=== PATIENT | male | born 1975 | race Caucasian/White ===

== ENCOUNTER 2016-09-14 17:51 | Emergency (ER) | payer BC ==
--- NOTE | 2016-09-14 18:05 | EDM.PDOC ---
<CrystalAndrae Lyons - Last Filed: 09/14/16 18:02> ED HPI GENERAL MEDICAL PROBLEM - General Chief Complaint: Fever Stated Complaint: PT HAS FEVER Time Seen by Provider: 09/14/16 17:56 - History of Present Illness INITIAL COMMENTS - FREE TEXT/NARRATIVE: HISTORY AND PHYSICAL: History of present illness: Patient 40-year-old white male presents with concern of fever off and on 5 days he states he's had some associated body aches he denies cough shortness of breath nausea vomiting abdominal pain or other concern he states he did have a root canal and has had some challenges with displacement of the filling and intermittent food getting caught in that tooth he states his pain with that only relates to when food is in there and he removes it usually with a toothpick Review of systems: As per history of present illness and below otherwise all systems reviewed and negative. Past medical history: As per history of present illness and as reviewed below otherwise noncontributory. Surgical history: As per history of present illness and as reviewed below otherwise noncontributory. Social history: No reported history of drug or alcohol abuse. Family history: As per history of present illness and as reviewed below otherwise noncontributory. Physical exam: HEENT: Atraumatic, normocephalic, pupils reactive, negative for conjunctival pallor or scleral icterus, mucous membranes moist, throat clear, neck supple, nontender, trachea midline. Lungs: Clear to auscultation, breath sounds equal bilaterally, chest nontender. Heart: S1S2, regular, negative for clicks, rubs, or JVD. Abdomen: Soft, nondistended, nontender. Negative for masses or hepatosplenomegaly. Negative for costovertebral tenderness. Pelvis: Stable nontender. Genitourinary: Deferred. Rectal: Deferred. Extremities: Atraumatic, negative for cords or calf pain. Neurovascular unremarkable. Neuro: Awake, alert, oriented. Cranial nerves II through XII unremarkable. Cerebellum unremarkable. Motor and sensory unremarkable throughout. Exam nonfocal. Diagnostics: CBC CMP UA chest x-ray blood culture 2 Therapeutics: None Impression: #1 history of intermittent fever Definitive disposition and diagnosis as appropriate pending reevaluation and review of above. generalized Pain Score (Numeric/FACES): 5 - Related Data Allergies Allergy/AdvReac Type Severity Reaction Status Date / Time Penicillins Allergy Hives Verified 09/14/16 17:57 Home Meds: Home Meds . [No Known Home Meds] 09/16/15 [History] Past Medical History Musculoskeletal History: Reports: Fracture - Past Surgical History GI Surgical History: Reports: Appendectomy Social & Family History - Family History Family Medical History: Noncontributory - Tobacco Use Smoking Status *Q: Current Every Day Smoker Years of Tobacco use: 20 Packs/Tins Daily: 1 - Recreational Drug Use Recreational Drug Use: No ED ROS GENERAL - Review of Systems Review Of Systems: ROS reveals no pertinent complaints other than HPI. ED EXAM, GENERAL - Physical Exam Exam: See Below (See dictation) Course - Vital Signs Last Recorded V/S: Last Vital Signs Temp 37.1 C 09/14/16 17:58 Pulse 126 H 09/14/16 17:58 Resp 18 09/14/16 17:58 BP 135/87 09/14/16 17:58 Pulse Ox 98 09/14/16 17:58 - Orders/Labs/Meds Orders: Active Orders 24 hr Category Date Time Status Chest 2V [CR] Stat Exams 09/14/16 18:01 Taken CULTURE BLOOD [BC] Stat Lab 09/14/16 18:08 Received CULTURE BLOOD [BC] Stat Lab 09/14/16 18:15 Received UA W/MICROSCOPIC [URIN] Stat Lab 09/14/16 18:50 Received Sodium Chloride 0.9% [Normal Saline] 1,000 ml Med 09/14/16 18:09 Active IV STAT Blood Culture x2 Reflex Set [OM.PC] Stat Oth 09/14/16 18:01 Ordered Medication Orders Sodium Chloride (Normal Saline) 1,000 mls @ 999 mls/hr IV STAT ONE Stop: 09/14/16 19:09 Last Admin: 09/14/16 18:14 Dose: 999 mls/hr Labs: Laboratory Tests 09/14/16 09/14/16 Range/Units 18:08 18:08 WBC 8.83 (4.0-11.0) K/uL RBC 4.32 L (4.50-5.90) M/uL Hgb 13.4 (13.0-17.0) g/dL Hct 39.1 (38.0-50.0) % MCV 90.5 (80.0-98.0) fL MCH 31.0 (27.0-32.0) pg MCHC 34.3 (31.0-37.0) g/dL RDW Std Deviation 41.8 (28.0-62.0) fl RDW Coeff of Nuris 13 (11.0-15.0) % Plt Count 215 (150-400) K/uL MPV 9.00 (7.40-12.00) fL Neut % (Auto) 72.9 (48.0-80.0) % Lymph % (Auto) 18.5 (16.0-40.0) % [place] % (Auto) 8.3 (0.0-15.0) % Eos % (Auto) 0.1 (0.0-7.0) % Baso % (Auto) 0.2 (0.0-1.5) % Neut # (Auto) 6.4 H (1.4-5.7) K/uL Lymph # (Auto) 1.6 (0.6-2.4) K/uL [place] # (Auto) 0.7 (0.0-0.8) K/uL Eos # (Auto) 0.0 (0.0-0.7) K/uL Baso # (Auto) 0.0 (0.0-0.1) K/uL Nucleated RBC % 0.0 /100WBC Nucleated RBCs # 0 K/uL Sodium 135 L (136-146) mmol/L Potassium 3.4 L (3.5-5.1) mmol/L Chloride 103 (98-110) mmol/L Carbon Dioxide 23 (21-31) mmol/L BUN 10 (6.0-23.0) mg/dL Creatinine 1.1 (0.6-1.5) mg/dL Est Cr Clr Drug Dosing 97.00 mL/min Estimated GFR (MDRD) > 60.0 ml/min Glucose 145 H (60-110) mg/dL Calcium 8.8 (8.8-10.8) mg/dL Total Bilirubin 0.3 (0.1-1.5) mg/dL AST 47 H (5-40) IU/L ALT 32 (8-54) IU/L Alkaline Phosphatase 99 (40-150) Total Protein 6.8 (6.0-8.0) g/dL Albumin 3.5 (3.5-5.0) g/dL Globulin 3.3 (2.0-3.5) g/dL Albumin/Globulin Ratio 1.1 L (1.3-2.8) Meds: Medications Generic Name Dose Route Start Last Admin Trade Name Freq PRN Reason Stop Dose Admin Sodium Chloride 1,000 mls @ 999 mls/hr 09/14/16 18:09 09/14/16 18:14 Normal Saline IV 09/14/16 19:09 999 mls/hr STAT ONE Administration Discontinued Medications Generic Name Dose Route Start Last Admin Trade Name Freq PRN Reason Stop Dose Admin Ceftriaxone Sodium/Dextrose 1 50 mls @ 100 mls/hr 09/14/16 18:09 09/14/16 18: 15 gm/ Premix IV 09/14/16 18:38 100 mls/hr ONETIME ONE Administration Departure - Departure Disposition: Home, Self-Care 01 Clinical Impression: Pneumonia Qualifiers: Pneumonia type: due to unspecified organism Laterality: left Lung location: lower lobe of lung Qualified Code(s): J18.1 - Lobar pneumonia, unspecified organism - Discharge Information Forms: ED Department Discharge Additional Instructions: The following information is given to patients seen in the emergency department who are being discharged to home. This information is to outline your options for follow-up care. We provide all patients seen in our emergency department with a follow-up referral. The need for follow-up, as well as the timing and circumstances, are variable depending upon the specifics of your emergency department visit. If you don't have a primary care physician on staff, we will provide you with a referral. We always advise you to contact your personal physician following an emergency department visit to inform them of the circumstance of the visit and for follow-up with them and/or the need for any referrals to a consulting specialist. The emergency department will also refer you to a specialist when appropriate. This referral assures that you have the opportunity for followup care with a specialist. All of these measure are taken in an effort to provide you with optimal care, which includes your followup. Under all circumstances we always encourage you to contact your private physician who remains a resource for coordinating your care. When calling for followup care, please make the office aware that this follow-up is from your recent emergency room visit. If for any reason you are refused follow-up, please contact the [facility] emergency department at and ask to speak to the emergency department charge nurse. ADITHYA Chi [facility]- Internal Medicine and Family [address] [address] Push fluids rest and use [id number] Tylenol/ibuprofen for fevers and body aches. Please take antibiotics until they are finished. These call and follow- up with one of our clinic physicians or your provider in the next few days for reevaluation and check up and return to the ER as needed and as discussed <Arlet Reno - Last Filed: 09/14/16 19:05> ED HPI GENERAL MEDICAL PROBLEM - History of Present Illness INITIAL COMMENTS - FREE TEXT/NARRATIVE: Please note that the chest x-ray was reviewed and reveals a left lower lobe infiltrate for which the patient has already received Rocephin here in the ED and will be given a prescription for Levaquin for home. All testing results were discussed by Dr. Garber with the patient. Please add to impression of above: Left lower lobe pneumonia ED ROS GENERAL - Review of Systems Review Of Systems: ROS reveals no pertinent complaints other than HPI. Departure - Departure Time of Disposition: 19:02 Condition: Good
[2016-09-14] MEDS ORDERED: Sodium Chloride 0.9% 1,000 ML IV ONE (18:09)
[2016-09-14] MEDS ORDERED: cefTRIAXone 1 GM in Premix Bag 1 BAG IV ONE (18:09)
[2016-09-14 18:51] LABS: CHLORIDE,CL 103 mmol/L (98-110); SODIUM,NA 135 mmol/L (136-146)
[2016-09-14 19:07] VITALS: BP 132/81
--- NOTE | 2016-09-16 11:29 | CR ---
EXAM DATE: 09/14/16 PATIENT'S AGE: 40 Patient: JOE BOWERS Facility: [place], [place] Site . Site : 1975 Study: XRay Chest [id number]/15/2017 6:39:54 PM Ordering Physician: Crystal Abebe Final Report: INDICATIONS: Fever for 4-5 days. TECHNIQUE: Chest 2 view. COMPARISON: Chest radiograph September 06, 2012. FINDINGS: No pneumothorax or pleural effusion. Patchy ill-defined opacity in the periphery of the left lower lobe. Remainder of the lungs are clear. Cardiac and mediastinal contours are within normal limits. Upper abdomen and osseous structures show no acute abnormality. IMPRESSION: Left lower lobe opacity, worrisome for pneumonia. Radiographic followup to resolution recommended. Dictated by Charles Parmar MD @ 09/14/2016 6:43:35 PM Dictated by: Charles Parmar MD @ 09/14/2016 18:43:50 (Electronic Signature) Report Signed by Proxy. [facility] HOSPITALViktor
== END 2016-09-14 19:20 | disposition home or self-care (01) ==
LOC: MW.ED 17:51
DX: J18.9 Pneumonia, unspecified organism (principal); F17.210 Nicotine dependence, cigarettes, uncomplicated; Z90.49 Acquired absence of other specified parts of digestive tract; Z88.0 Allergy status to penicillin
CPT/HCPCS: 36415; 71020; 80053; 81001; 85025; 87040; 96365; 99283; J0696; J7040; 99284

== ENCOUNTER 2016-12-07 12:05 | Inpatient (IN) | payer BC ==
[2016-12-07] MEDS ORDERED: Sodium Chloride 0.9% 2.5 ML Syringe FLUSH PRN (12:13)
[2016-12-07] MEDS ORDERED: Sodium Chloride 0.9% 10 ML Syringe FLUSH PRN (12:13)
[2016-12-07] MEDS ORDERED: Ondansetron 4 MG/2 ML SDV IVPUSH ONE (12:20)
[2016-12-07] MEDS ORDERED: Sodium Chloride 0.9% 1,000 ML IV ONE ×3 (12:20→14:02)
[2016-12-07] MEDS ORDERED: Morphine 10 MG/ML Syringe IV ONE (12:20)
--- NOTE | 2016-12-07 12:20 | EDM.PDOC ---
<Denise Gu - Last Filed: 12/07/16 14:31> ED HPI GENERAL MEDICAL PROBLEM - General Chief Complaint: Fever Stated Complaint: ALL OVER PAIN,FEVER Time Seen by Provider: 12/07/16 12:13 Source of Information: Reports: Patient History Limitations: Reports: No Limitations - History of Present Illness INITIAL COMMENTS - FREE TEXT/NARRATIVE: HISTORY AND PHYSICAL: []31-year-old male presents after 2 days of being sick fever low back pain History of Present Illness: []Says this is similar to what he had last time but is coming in sooner He has had kidney stones in the past and always having low back pain denies having kidney stone at this time Review of Systems: As per history of present illness and below otherwise all systems reviewed and negative. Past medical history: As per history of present illness and as reviewed below otherwise noncontributory. Surgical history: As per history of present illness and as reviewed below otherwise noncontributory. Social history: No reported history of drug or alcohol abuse. Family history: As per history of present illness and as reviewed below otherwise noncontributory. Physical exam: Alert and oriented answering questions appropriately in full sentences without any shortness of breath. Grunting at times with pain to his low back HEENT: Atraumatic, normocehpalic, pupils reactive, negative for conjunctival pallor or scleral icterus, mucous membranes moist, throat clear, neck supple, nontender, trachea midline. Lungs: Clear to auscultation, breath sounds equal bilaterally, chest non tender. Heart: S1S2, regular, negative for clicks, rubs, or JVD. Abdomen: Soft, nondistended, nontender. Negative for masses or hepatossplenmegaly. Negative for costovertebral tenderness. Pelvis: Stable nontender. Genitourinary: Deferred. Rectal: Deferred Extremities: Atraumatic, negative for cords or calf pain. Neurovascular unremarkable. Neuro: Awake, alert, oriented. Cranial nerves II through XII unremarkable. Cerebellum unremarkable. Motor and sensory unremarkable throughout. Exam nonfocal. Urine drug screen is positive for amphetamines and methamphetamines patient states that he uses it as recreational product and did smoke this a few days ago. Patient's pain level appears to be disproportionate to urine tract infection combined this with his elevated white count of 19.9 consider unreliable story and with his drug use. As been determined that patient would require MRI which is unavailable at this facility today. Dr. Reno has discussed at length with this patient his need for admission and he has agreed to stay here. Have discussed this case with Dr. Reaves who is the hospitalist health and physical education professor and he is agreeable for admission to med surge floor. I have discussed this at length with the patient significant other in the hospital room. Patient is agreeable to admission here he is advised should his condition worsen he will be transferred. Diagnostics: []CBC CMP strep influenza chest x-ray Therapeutics: [Normal saline and Zofran morphine] Vancomycin, Rocephin, Impression: [Leukocytosis Urinary tract infection Possible early pyelonephritis] Plan: [Inpatient admission] Definitive disposition and diagnosis as appropriate pending reevaluation and review of above. generalized Pain Score (Numeric/FACES): 7 - Related Data Allergies Allergy/AdvReac Type Severity Reaction Status Date / Time Penicillins Allergy Hives Verified 12/07/16 12:10 Home Meds: Home Meds . [No Known Home Meds] 09/16/15 [History] Past Medical History - Past Health History Medical/Surgical History: Denies Medical/Surgical History Musculoskeletal History: Reports: Fracture - Past Surgical History GI Surgical History: Reports: Appendectomy Social & Family History - Family History Family Medical History: Noncontributory - Tobacco Use Smoking Status *Q: Current Every Day Smoker Years of Tobacco use: 20 Packs/Tins Daily: 1 - Recreational Drug Use Recreational Drug Use: No ED ROS ENT - Review of Systems Review Of Systems: ROS reveals no pertinent complaints other than HPI. ED EXAM, ENT - Physical Exam Exam: See Below (See dictation) Course - Vital Signs Last Recorded V/S: Last Vital Signs Temp 37.2 C 12/07/16 12:10 Pulse 97 12/07/16 13:25 Resp 20 12/07/16 13:25 BP 117/51 L 12/07/16 13:25 Pulse Ox 97 12/07/16 13:25 - Orders/Labs/Meds Orders: Active Orders 24 hr Category Date Time Status Patient Status [ADT] Stat ADT 12/07/16 14:37 Active EKG Documentation Completion [RC] STAT Care 12/07/16 13:51 Inactive Abdomen Pelvis w Cont [CT] Stat Exams 12/07/16 12:35 Taken Chest 2V [CR] Stat Exams 12/07/16 12:15 Taken CULTURE BLOOD [BC] Stat Lab 12/07/16 14:14 Received CULTURE BLOOD [BC] Stat Lab 12/07/16 14:27 Received CULTURE STREP A CONFIRMATION [RM] Stat Lab 12/07/16 12:29 Results CULTURE URINE [] Stat Lab 12/07/16 13:30 Received STREP SCRN A RAPID W CULT CONF [] Stat Lab 12/07/16 12:29 Results Sodium Chloride 0.9% [Normal Saline] 1,000 ml Med 12/07/16 14:02 Active IV STAT Sodium Chloride 0.9% [Saline Flush] Med 12/07/16 12:13 Active 10 ml FLUSH ASDIRECTED PRN Sodium Chloride 0.9% [Saline Flush] Med 12/07/16 12:13 Active 2.5 ml FLUSH ASDIRECTED PRN Vancomycin [Vancocin] 1 gm Med 12/07/16 14:31 Active Sodium Chloride 0.9% [Normal Saline] 250 ml IV ONETIME Blood Culture x2 Reflex Set [OM.PC] Stat Oth 12/07/16 14:02 Ordered Saline Lock Insert [OM.PC] Stat Oth 12/07/16 12:13 Ordered Medication Orders Sodium Chloride (Normal Saline) 1,000 mls @ 999 mls/hr IV STAT ONE Stop: 12/07/16 15:02 Last Admin: 12/07/16 14:41 Dose: 999 mls/hr Vancomycin HCl 1 gm/ Sodium (Chloride) 250 mls @ 250 mls/hr IV ONETIME ONE Stop: 12/07/16 15:30 Sodium Chloride (Saline Flush) 10 ml FLUSH ASDIRECTED PRN PRN Reason: Keep Vein Open Last Admin: 12/07/16 12:43 Dose: 10 ml Sodium Chloride (Saline Flush) 2.5 ml FLUSH ASDIRECTED PRN PRN Reason: Keep Vein Open Last Admin: 12/07/16 12:43 Dose: 2.5 ml Labs: Laboratory Tests 12/07/16 12/07/16 12/07/16 Range/Units 12:21 12:21 13:30 WBC 19.97 H (4.0-11.0) K/uL RBC 4.64 (4.50-5.90) M/uL Hgb 14.9 (13.0-17.0) g/dL Hct 43.3 (38.0-50.0) % MCV 93.3 (80.0-98.0) fL MCH 32.1 H (27.0-32.0) pg MCHC 34.4 (31.0-37.0) g/dL RDW Std Deviation 44.3 (28.0-62.0) fl RDW Coeff of Nuris 13 (11.0-15.0) % Plt Count 224 (150-400) K/uL MPV 8.60 (7.40-12.00) fL Neut % (Auto) 77.5 (48.0-80.0) % Lymph % (Auto) 15.6 L (16.0-40.0) % [place] % (Auto) 6.6 (0.0-15.0) % Eos % (Auto) 0.1 (0.0-7.0) % Baso % (Auto) 0.2 (0.0-1.5) % Neut # (Auto) 15.5 H (1.4-5.7) K/uL Lymph # (Auto) 3.1 H (0.6-2.4) K/uL [place] # (Auto) 1.3 H (0.0-0.8) K/uL Eos # (Auto) 0.0 (0.0-0.7) K/uL Baso # (Auto) 0.0 (0.0-0.1) K/uL Nucleated RBC % 0.0 /100WBC Nucleated RBCs # 0 K/uL Sodium 134 L (136-146) mmol/L Potassium 3.8 (3.5-5.1) mmol/L Chloride 103 (98-110) mmol/L Carbon Dioxide 21 (21-31) mmol/L BUN 12 (6.0-23.0) mg/dL Creatinine 1.1 (0.6-1.5) mg/dL Est Cr Clr Drug Dosing 96.02 mL/min Estimated GFR (MDRD) > 60.0 ml/min Glucose 119 H (60-110) mg/dL Calcium 8.6 L (8.8-10.8) mg/dL Total Bilirubin 1.1 (0.1-1.5) mg/dL AST 16 (5-40) IU/L ALT 23 (8-54) IU/L Alkaline Phosphatase 102 (40-150) Total Protein 7.0 (6.0-8.0) g/dL Albumin 3.8 (3.5-5.0) g/dL Globulin 3.2 (2.0-3.5) g/dL Albumin/Globulin Ratio 1.2 L (1.3-2.8) Urine Color Urine Appearance Urine pH (5.0-8.0) Ur Specific [place] (1.001-1.035) Urine Protein (NEGATIVE) mg/dL Urine Glucose (UA) (NEGATIVE) mg/dL Urine Ketones (NEGATIVE) mg/dL Urine Occult Blood (NEGATIVE) Urine Nitrite (NEGATIVE) Urine Bilirubin (NEGATIVE) Urine Urobilinogen (<2.0) EU/dL Ur Leukocyte Esterase (NEGATIVE) Urine RBC (0-2/HPF) Urine WBC (0-5/HPF) Ur Epithelial Cells (NONE-FEW) Urine Bacteria (NEGATIVE) Urine Opiates Screen NEGATIVE (NEGATIVE) Ur Oxycodone Screen NEGATIVE (NEGATIVE) Urine Methadone Screen NEGATIVE (NEGATIVE) Ur Barbiturates Screen NEGATIVE (NEGATIVE) Ur Phencyclidine Scrn NEGATIVE (NEGATIVE) Ur Amphetamine Screen POSITIVE (NEGATIVE) U Methamphetamines Scrn POSITIVE (NEGATIVE) U Benzodiazepines Scrn NEGATIVE (NEGATIVE) U Cocaine Metab Screen NEGATIVE (NEGATIVE) U Marijuana (THC) Screen NEGATIVE (NEGATIVE) 12/07/16 Range/Units 13:30 WBC (4.0-11.0) K/uL RBC (4.50-5.90) M/uL Hgb (13.0-17.0) g/dL Hct (38.0-50.0) % MCV (80.0-98.0) fL MCH (27.0-32.0) pg MCHC (31.0-37.0) g/dL RDW Std Deviation (28.0-62.0) fl RDW Coeff of [place]ur[place] (11.0-15.0) % Plt Count (150-400) K/uL MPV (7.40-12.00) fL Neut % (Auto) (48.0-80.0) % Lymph % (Auto) (16.0-40.0) % [place] % (Auto) (0.0-15.0) % Eos % (Auto) (0.0-7.0) % Baso % (Auto) (0.0-1.5) % Neut # (Auto) (1.4-5.7) K/uL Lymph # (Auto) (0.6-2.4) K/uL [place] # (Auto) (0.0-0.8) K/uL Eos # (Auto) (0.0-0.7) K/uL Baso # (Auto) (0.0-0.1) K/uL Nucleated RBC % /100WBC Nucleated RBCs # K/uL Sodium (136-146) mmol/L Potassium (3.5-5.1) mmol/L Chloride (98-110) mmol/L Carbon Dioxide (21-31) mmol/L BUN (6.0-23.0) mg/dL Creatinine (0.6-1.5) mg/dL Est Cr Clr Drug Dosing mL/min Estimated GFR (MDRD) ml/min Glucose (60-110) mg/dL Calcium (8.8-10.8) mg/dL Total Bilirubin (0.1-1.5) mg/dL AST (5-40) IU/L ALT (8-54) IU/L Alkaline Phosphatase (40-150) Total Protein (6.0-8.0) g/dL Albumin (3.5-5.0) g/dL Globulin (2.0-3.5) g/dL Albumin/Globulin Ratio (1.3-2.8) Urine Color YELLOW Urine Appearance CLEAR Urine pH 6.0 (5.0-8.0) Ur Specific [place] <= 1.005 (1.001-1.035) Urine Protein NEGATIVE (NEGATIVE) mg/dL Urine Glucose (UA) NEGATIVE (NEGATIVE) mg/dL Urine Ketones NEGATIVE (NEGATIVE) mg/dL Urine Occult Blood TRACE-LYSED (NEGATIVE) Urine Nitrite POSITIVE H (NEGATIVE) Urine Bilirubin NEGATIVE (NEGATIVE) Urine Urobilinogen 0.2 (<2.0) EU/dL Ur Leukocyte Esterase SMALL (NEGATIVE) Urine RBC 1-2 (0-2/HPF) Urine WBC 12-15 (0-5/HPF) Ur Epithelial Cells RARE (NONE-FEW) Urine Bacteria 1+ H (NEGATIVE) Urine Opiates Screen (NEGATIVE) Ur Oxycodone Screen (NEGATIVE) Urine Methadone Screen (NEGATIVE) Ur Barbiturates Screen (NEGATIVE) Ur Phencyclidine Scrn (NEGATIVE) Ur Amphetamine Screen (NEGATIVE) U Methamphetamines Scrn (NEGATIVE) U Benzodiazepines Scrn (NEGATIVE) U Cocaine Metab Screen (NEGATIVE) U Marijuana (THC) Screen (NEGATIVE) Meds: Medications Generic Name Dose Route Start Last Admin Trade Name Freq PRN Reason Stop Dose Admin Sodium Chloride 1,000 mls @ 999 mls/hr 12/07/16 14:02 12/07/16 14:41 Normal Saline IV 12/07/16 15:02 999 mls/hr STAT ONE Administration Vancomycin HCl 1 gm/ Sodium 250 mls @ 250 mls/hr 12/07/16 14:31 Chloride IV 12/07/16 15:30 ONETIME ONE Sodium Chloride 10 ml 12/07/16 12:13 12/07/16 12:43 Saline Flush FLUSH 10 ml ASDIRECTED PRN Administration Keep Vein Open Sodium Chloride 2.5 ml 12/07/16 12:13 12/07/16 12:43 Saline Flush FLUSH 2.5 ml ASDIRECTED PRN Administration Keep Vein Open Discontinued Medications Generic Name Dose Route Start Last Admin Trade Name Freq PRN Reason Stop Dose Admin Sodium Chloride 1,000 mls @ 999 mls/hr 12/07/16 12:20 12/07/16 12:40 Normal Saline IV 12/07/16 13:20 999 mls/hr STAT ONE Administration Sodium Chloride 1,000 mls @ 999 mls/hr 12/07/16 13:40 12/07/16 14:07 Normal Saline IV 12/07/16 14:40 999 mls/hr STAT ONE Administration Ciprofloxacin/Dextrose 400 mg/ 200 mls @ 200 mls/hr 12/07/16 14:15 Premix IV Q12H INEZ Ceftriaxone Sodium/Dextrose 1 50 mls @ 100 mls/hr 12/07/16 14:06 12/07/16 14: 41 gm/ Premix IV 12/07/16 14:35 100 mls/hr ONETIME ONE Administration Levofloxacin/Dextrose 500 mg/ 100 mls @ 100 mls/hr 12/07/16 14:32 Premix IV 12/07/16 15:31 ONETIME ONE Iopamidol 100 ml 12/07/16 13:13 12/07/16 13:13 Isovue Multipack-370 (76%) IVPUSH 12/07/16 13:14 100 ml ONETIME STA Administration Ketorolac Tromethamine 30 mg 12/07/16 13:27 12/07/16 13:38 Toradol IVPUSH 12/07/16 13:28 30 mg ONETIME ONE Administration Ketorolac Tromethamine Confirm 12/07/16 13:39 12/07/16 13:43 Toradol Administered 12/07/16 13:40 Not Given Dose 30 mg .ROUTE .STK-MED ONE Morphine Sulfate 2 mg 12/07/16 12:20 12/07/16 12:36 Morphine IV 12/07/16 12:21 2 mg ONETIME ONE Administration Ondansetron HCl 4 mg 12/07/16 12:20 12/07/16 12:36 Zofran IVPUSH 12/07/16 12:21 4 mg ONETIME ONE Administration Departure - Departure Time of Disposition: 14:39 Disposition: Admitted As Inpatient 65 Condition: Good Clinical Impression: Leukocytosis Qualifiers: Leukocytosis type: unspecified Qualified Code(s): D72.829 - Elevated white blood cell count, unspecified UTI (urinary tract infection) Qualifiers: Urinary tract infection type: acute cystitis Hematuria presence: with hematuria Qualified Code(s): N30.01 - Acute cystitis with hematuria - Discharge Information Referrals: PCP,Unknown [Primary Care Provider] - Forms: ED Department Discharge <Arlet Reno - Last Filed: 12/07/16 14:49> ED HPI GENERAL MEDICAL PROBLEM - History of Present Illness INITIAL COMMENTS - FREE TEXT/NARRATIVE: This is Dr. Reno dictating an addendum as a supervising physician on this case. I've been involved with this case from the beginning and actually know this patient from his last ER visit on September 14 when he was diagnosed with pneumonia. The patient's pain on my evaluation does seem somewhat out of proportion to the findings of just the UTI. White cell count is very worrisome and in light of his positive drug screen there is always great concern about a possible epidural abscess and we are unable to do MRI until Friday. I discussed with the patient being transferred to [facility] to get this MRI emergently and admission there for further care and he is refusing that at this time. The patient wanted to leave and go home AMA. I have discussed with him the alternative option of being admitted here for IV antibiotics and continued close follow-up and that if he worsens then transferred to [facility] which he is agreeable to. The patient and significant other at bedside are fully aware of our lack of resources here and the risks involved with being admitted here versus transfer and accepts those risks. The case was discussed with Dr. Reaves who was aware of these discussions and accepts the patient. I have told the patient on a second visit that with this admission if things change that the recommendation would be to transfer and he says that he would reconsider that at that time. Initially we wanted to place the patient on Zosyn and vancomycin but he has an allergy to penicillin so Dr. Reaves requested Rocephin and vancomycin. The patient currently in the ED looks somewhat uncomfortable but he is not toxic appearing and his vitals have remained stable. Critical care time excluding procedures:35min
[2016-12-07 12:46] LABS: CHLORIDE,CL 103 mmol/L (98-110); SODIUM,NA 134 mmol/L (136-146)
[2016-12-07] MEDS ORDERED: Iopamidol 755 MG/ML 500 ML Multipack Bottle IVPUSH STA (13:13)
[2016-12-07] MEDS ORDERED: Ketorolac 30 MG/ML SDV IVPUSH ONE (13:27)
[2016-12-07] MEDS ORDERED: Ketorolac 30 MG/ML SDV ONE (13:39)
[2016-12-07] MEDS ORDERED: cefTRIAXone 1 GM in Premix Bag 1 BAG IV ONE (14:06)
[2016-12-07] MEDS ORDERED: Ciprofloxacin in D5W 400 MG in Premix Bag 1 BAG IV SCH ×2 (14:15)
[2016-12-07] MEDS ORDERED: Levofloxacin/Dextrose 5%-Water 500 MG in Premix Bag 1 BAG IV ONE (14:32)
[2016-12-07] MEDS ORDERED: Acetaminophen 325 MG Tab PO PRN (15:44)
[2016-12-07] MEDS ORDERED: Ondansetron 4 MG Tab.DIS PO PRN (15:44)
[2016-12-07] MEDS ORDERED: Docusate Sodium 100 MG Cap PO PRN (15:44)
[2016-12-07] MEDS ORDERED: Temazepam 15 MG Cap PO PRN (15:44)
[2016-12-07] MEDS ORDERED: oxyCODONE 5 MG Tab PO PRN (15:44)
--- NOTE | 2016-12-07 15:52 | PCM.HP ---
H&P History of Present Illness - General Date of Service: 12/07/16 Admit Problem/Dx: Admission Diagnosis/Problem Admission Diagnosis/Problem Intractable pain Source of Information: Patient History Limitations: Reports: No Limitations - History of Present Illness Initial Comments - Free Text/Narative: The patient is a 41-year-old gentleman who is presented to the emergency department after 2 days of "being sick" and complaining of fever and low back pain. The patient reports that the pain came on softly and then suddenly got very intense. The patient says that other than the fever he has had no other complaints. He has had no specific aggravating or relieving factors. The patient was in the emergency department was noted to have marked leukocytosis of 19,000 without a significant left shift. The patient also had urinalysis which was positive for nitrites and small amount of leukocyte esterase along with +1 bacteria. The patient has a history of having kidney stones in the past. The patient was also positive for amphetamine/methamphetamine abuse. The patient says that this is only occasional recreation for him. The patient has no chronic medical problems and he does not take any medication chronically. He' s been working. Onset of Symptoms: Reports: Gradual Duration of Symptoms: Reports: Day(s):, Getting Worse Location: Reports: Back Quality: Reports: Ache, Throbbing Severity: Severe Improves with: Reports: Rest Worsens with: Reports: Movement Associated Symptoms: Reports: Fever/Chills, Headaches generalized Pain Score (Numeric/FACES): 9 - Related Data Allergies/Adverse Reactions: Allergies Allergy/AdvReac Type Severity Reaction Status Date / Time Penicillins Allergy Hives Verified 12/07/16 12:10 Home Medications: Home Meds . [No Known Home Meds] 09/16/15 [History] Past Medical History - Past Health History Medical/Surgical History: Denies Medical/Surgical History HEENT History: Reports: None Cardiovascular History: Reports: None Respiratory History: Reports: Other (See Below) Other Respiratory History: h/o pneumonia Gastrointestinal History: Reports: None Genitourinary History: Reports: None Musculoskeletal History: Reports: Fracture Neurological History: Reports: None Psychiatric History: Reports: None Endocrine/Metabolic History: Reports: None Hematologic History: Reports: None Immunologic History: Reports: None Oncologic (Cancer) History: Reports: None Dermatologic History: Reports: None - Infectious Disease History Infectious Disease History: Reports: Chicken Pox - Past Surgical History GI Surgical History: Reports: Appendectomy Social & Family History - Family History Family Medical History: Noncontributory - Tobacco Use Smoking Status *Q: Current Every Day Smoker Years of Tobacco use: 20 Packs/Tins Daily: 1 Used Tobacco, but Quit: No Second Hand Smoke Exposure: Yes - Caffeine Use Caffeine Use: Reports: Coffee - Recreational Drug Use Recreational Drug Use: Yes Drug Use in Last 12 Months: Yes Recreational Drug Type: Reports: Amphetamines (Speed), Methamphetamine Recreational Drug Use Frequency: Socially H&P Review of Systems - Review of Systems: Review Of Systems: See Below General: Reports: Fever, Chills HEENT: Reports: No Symptoms Pulmonary: Reports: No Symptoms Cardiovascular: Reports: No Symptoms Gastrointestinal: Reports: No Symptoms Genitourinary: Reports: No Symptoms Musculoskeletal: Reports: Back Pain, Muscle Pain Skin: Reports: No Symptoms Psychiatric: Reports: No Symptoms Neurological: Reports: No Symptoms Hematologic/Lymphatic: Reports: No Symptoms Immunologic: Reports: No Symptoms Exam - Exam Exam: See Below - Vital Signs Vital Signs: Last Vital Signs Temp 36.9 C 12/07/16 15:18 Pulse 88 12/07/16 15:18 Resp 20 12/07/16 15:18 BP 130/74 12/07/16 15:18 Pulse Ox 99 12/07/16 15:18 Weight: 81.647 kg - Exam Quality Assessment: No: Supplemental Oxygen General: Alert, Oriented, Cooperative, Moderate Distress HEENT: Conjunctiva Clear, Mucosa Moist & [place] (Dry), Nares Patent Neck: Supple, Trachea Midline Lungs: Clear to Auscultation, Normal Respiratory Effort, Rhonchi Cardiovascular: Regular Rate GI/Abdominal Exam: Normal Bowel Sounds, Soft Back Exam: CVA Tenderness (L), CVA Tenderness (R) Extremities: No Pedal Edema Skin: Warm, Dry Neurological: Cranial Nerves Intact Neuro Extensive - Mental Status: Alert, Oriented x3, Normal Mood/Affect Psychiatric: Alert, Normal Affect - Patient Data Result Diagrams: 12/07/16 12:21 12/07/16 12:21 *Q Meaningful Use (ADM) - VTE *Q VTE Criteria *Q: - VTE Risk Assess *Q Each Risk Factor Represents 1 Point: Age 41 - 59 years Total Score 1 Point Risk Factors: 1 - Stroke *Q Stroke Criteria *Q: - AMI *Q AMI Criteria *Q: - Problem List (1) Pyelonephritis, acute SNOMED Code(s): 57239331 ICD Code: N10 - ACUTE PYELONEPHRITIS Status: Acute Priority: High Current Visit: Yes (2) Methamphetamine abuse SNOMED Code(s): 805629662 ICD Code: F15.10 - OTHER STIMULANT ABUSE, UNCOMPLICATED Status: Acute Priority: High Current Visit: Yes (3) Back pain SNOMED Code(s): 496251003 ICD Code: M54.9 - DORSALGIA, UNSPECIFIED Status: Acute Priority: High Current Visit: Yes Qualifiers: Back pain location: thoracic back pain Back pain laterality: bilateral (4) Leukocytosis SNOMED Code(s): 586432031 ICD Code: D72.829 - ELEVATED WHITE BLOOD CELL COUNT, UNSPECIFIED Status: Acute Current Visit: Yes Qualifiers: Leukocytosis type: unspecified Qualified Code(s): D72.829 - Elevated white blood cell count, unspecified Problem List Initiated/Reviewed/Updated: Yes Orders Last 24hrs: Active Orders 24 hr Category Date Time Status Patient Status [ADT] Routine ADT 12/07/16 15:44 Active Oxygen Therapy [RC] PRN Care 12/07/16 15:44 Active Up ad Mayra [RC] ASDIRECTED Care 12/07/16 15:44 Active VTE/DVT Education [RC] PER UNIT ROUTINE Care 12/07/16 15:44 Active Vital Signs [RC] Q4H Care 12/07/16 15:44 Active Regular Diet [DIET] Diet 12/07/16 Dinner Active Acetaminophen [Tylenol] Med 12/07/16 15:44 Ordered 650 mg PO Q4H PRN Docusate Sodium [Colace] Med 12/07/16 15:44 Ordered 100 mg PO BID PRN Enoxaparin [Lovenox] Med 12/08/16 09:00 Ordered 30 mg SUBCUT DAILY Morphine Med 12/07/16 15:44 Ordered 2 mg IVPUSH Q2H PRN Nicotine [Habitrol] Med 12/08/16 09:00 Ordered 14 mg TRDERM DAILY Ondansetron [Zofran ODT] Med 12/07/16 15:44 Ordered 4 mg PO Q6H PRN Sodium Chloride 0.9% [Normal Saline] 1,000 ml Med 12/07/16 15:45 Ordered IV ASDIRECTED Temazepam [Restoril] Med 12/07/16 15:44 Ordered 15 mg PO BEDTIME PRN oxyCODONE Med 12/07/16 15:44 Ordered 5 mg PO Q4H PRN Resuscitation Status Routine Resus Stat 12/07/16 15:44 Ordered Medication Orders Acetaminophen (Tylenol) 650 mg PO Q4H PRN PRN Reason: Pain (Mild 1-3)/fever Docusate Sodium (Colace) 100 mg PO BID PRN PRN Reason: Constipation Enoxaparin Sodium (Lovenox) 30 mg SUBCUT DAILY [facility] Sodium Chloride (Normal Saline) 1,000 mls @ 75 mls/hr IV ASDIRECTED [facility] Morphine Sulfate (Morphine) 2 mg IVPUSH Q2H PRN PRN Reason: Pain (severe 7-10) Stop: 12/08/16 15:47 Nicotine (Habitrol) 14 mg TRDERM DAILY [facility] Ondansetron HCl (Zofran Odt) 4 mg PO Q6H PRN PRN Reason: nausea, able to take PO Oxycodone HCl (Oxycodone) 5 mg PO Q4H PRN PRN Reason: Pain (moderate 4-6) Sodium Chloride (Saline Flush) 10 ml FLUSH ASDIRECTED PRN PRN Reason: Keep Vein Open Last Admin: 12/07/16 12:43 Dose: 10 ml Sodium Chloride (Saline Flush) 2.5 ml FLUSH ASDIRECTED PRN PRN Reason: Keep Vein Open Last Admin: 12/07/16 12:43 Dose: 2.5 ml Temazepam (Restoril) 15 mg PO BEDTIME PRN PRN Reason: Sleep Assessment/Plan Comment:: The patient is a 41-year-old gentleman who be admitted observation. This appears likely a pyelonephritis although epidural abscess, discitis and other thoracic issues are on the differential. The patient has refused transport to tertiary care center or MRI services would be available. The patient does have pyuria and CVA tenderness as well. The patient has leukocytosis without a significant left shift which may be to the infection and/or the methamphetamine abuse. I ordered that the patient be placed on CIWA protocol and order to help to avoid withdrawal symptoms. The patient will be kept on IV fluids 75 mL per hour. I've also ordered morphine to help with the patient's intractable pain. For now he is on vancomycin and Rocephin although likely the vancomycin can be discontinued as I think that discitis or epidural abscess is less likely. I have admitted the patient observation and ordered laboratory testing in the morning. The patient likely will be appropriate for discharge in 1-2 days depending upon pain level, culture results and physical improvement.
[2016-12-07] MEDS: Morphine 2 MG/ML Syringe IVPUSH PRN ×2 (16:19→20:10)
[2016-12-07] MEDS ORDERED: LORazepam 2 MG/ML MDV IVPUSH PRN (20:01)
[2016-12-07] MEDS: Sodium Chloride 0.9% 1,000 ML IV SCH (20:11)
[2016-12-07] MEDS ORDERED: EXCEDRIN PO PRN (23:00)
[2016-12-07] MEDS ORDERED: EXCEDRIN MIGRAINE PO PRN (23:15)
[2016-12-08] MEDS: Sodium Chloride 0.9% 1,000 ML IV SCH (05:31)
[2016-12-08 06:32] LABS: CHLORIDE,CL 110 mmol/L (98-110); SODIUM,NA 139 mmol/L (136-146)
[2016-12-08 08:10] VITALS: BP 123/70
[2016-12-08] MEDS ORDERED: Enoxaparin 30 MG/0.3 ML Syringe SUBCUT SCH (09:00)
[2016-12-08] MEDS ORDERED: Nicotine 14 MG/24 Hr Patch TRDERM SCH (09:00)
--- NOTE | 2016-12-08 10:03 | PCM.DCSUM1 ---
Discharge Summary - Hospital Course Free Text/Narrative:: I was informed by nurses that patient wanted to leave hospital. I visited with him and informed him that due to his acute Pyelonephritis, leukocytosis and history of recurrent renal stones, my advice is that he remain in hospital until culture sensitivities return or leukocytosis resolves. He insisted to be discharged. I informed him that if he leaves it would be AMA. Patient decided that he would be leaving AMA. He was provided prescription for Ciprofloxacin 500 mg PO BID for 7 days. - Discharge Data Discharge Date: 12/08/16 Discharge Disposition: Against Medical Advice 07 Condition: Stable - Patient Instructions Diet: Regular Diet as Tolerated, No Alcoholic Beverages Activity: As Tolerated Driving: Do Not Drive Showering/Bathing: May Shower Notify Provider of: Fever, Increased Pain, Swelling and Redness, Drainage, Nausea and/or Vomiting - Discharge Plan Prescriptions/Med Rec: Ciprofloxacin HCl [Cipro] 500 mg PO BID 7 Days #14 tablet Home Medications: Home Meds Ciprofloxacin HCl [Cipro] 500 mg PO BID 7 Days #14 tablet 12/08/16 [Rx] Forms: ED Department Discharge Referrals: PCP,Unknown [Primary Care Provider] - - Discharge Summary/Plan Comment DC Time >30 min.: No - Patient Data Vitals - Most Recent: Last Vital Signs Temp 36.9 C 12/08/16 08:00 Pulse 77 12/08/16 08:00 Resp 22 H 12/08/16 08:00 BP 123/70 12/08/16 08:00 Pulse Ox 96 12/08/16 08:00 Weight - Most Recent: 81.647 kg I&O - Last 24 hours: Intake & Output 12/07/16 12/08/16 12/08/16 22:59 06:59 14:59 Intake Total 200 1350 Output Total 350 1450 Balance -150 -100 Lab Results - Last 24 hrs: Laboratory Results - last 24 hr 12/08/16 12/08/16 Range/Units 05:45 05:45 WBC 14.20 H (4.0-11.0) K/uL RBC 4.40 L (4.50-5.90) M/uL Hgb 14.0 (13.0-17.0) g/dL Hct 41.4 (38.0-50.0) % MCV 94.1 (80.0-98.0) fL MCH 31.8 (27.0-32.0) pg MCHC 33.8 (31.0-37.0) g/dL RDW Std Deviation 45.4 (28.0-62.0) fl RDW Coeff of Nuris 13 (11.0-15.0) % Plt Count 195 (150-400) K/uL MPV 8.90 (7.40-12.00) fL Neut % (Auto) 71.3 (48.0-80.0) % Lymph % (Auto) 21.5 (16.0-40.0) % [place] % (Auto) 6.3 (0.0-15.0) % Eos % (Auto) 0.7 (0.0-7.0) % Baso % (Auto) 0.2 (0.0-1.5) % Neut # (Auto) 10.1 H (1.4-5.7) K/uL Lymph # (Auto) 3.1 H (0.6-2.4) K/uL [place] # (Auto) 0.9 H (0.0-0.8) K/uL Eos # (Auto) 0.1 (0.0-0.7) K/uL Baso # (Auto) 0.0 (0.0-0.1) K/uL Nucleated RBC % 0.0 /100WBC Nucleated RBCs # 0 K/uL Sodium 139 (136-146) mmol/L Potassium 4.1 (3.5-5.1) mmol/L Chloride 110 (98-110) mmol/L Carbon Dioxide 22 (21-31) mmol/L BUN 12 (6.0-23.0) mg/dL Creatinine 0.9 (0.6-1.5) mg/dL Est Cr Clr Drug Dosing 117.36 mL/min Estimated GFR (MDRD) > 60.0 ml/min Glucose 99 (60-110) mg/dL Calcium 8.2 L (8.8-10.8) mg/dL Phosphorus 2.4 (2.4-4.7) mg/dL Magnesium 1.5 (1.5-2.3) mEq/L Total Bilirubin 0.4 (0.1-1.5) mg/dL AST 15 (5-40) IU/L ALT 18 (8-54) IU/L Alkaline Phosphatase 92 (40-150) Total Protein 5.8 L (6.0-8.0) g/dL Albumin 3.1 L (3.5-5.0) g/dL Globulin 2.7 (2.0-3.5) g/dL Albumin/Globulin Ratio 1.2 L (1.3-2.8) Med Orders - Current: Current Medications Acetaminophen (Tylenol) 650 mg PO Q4H PRN PRN Reason: Pain (Mild 1-3)/fever Last Admin: 12/07/16 20:44 Dose: 650 mg Docusate Sodium (Colace) 100 mg PO BID PRN PRN Reason: Constipation Enoxaparin Sodium (Lovenox) 30 mg SUBCUT DAILY [facility] Last Admin: 12/08/16 08:18 Dose: Not Given Sodium Chloride (Normal Saline) 1,000 mls @ 75 mls/hr IV ASDIRECTED [facility] Last Admin: 12/08/16 05:31 Dose: 75 mls/hr Ceftriaxone Sodium/Dextrose 1 (gm/ Premix) 50 mls @ 100 mls/hr IV Q24H [facility] Lorazepam (Ativan) 0 mg IVPUSH ASDIRECTED PRN; Protocol PRN Reason: Agitation Morphine Sulfate (Morphine) 2 mg IVPUSH Q2H PRN PRN Reason: Pain (severe 7-10) Stop: 12/08/16 15:47 Last Admin: 12/07/16 20:10 Dose: 2 mg Nicotine (Habitrol) 14 mg TRDERM DAILY [facility] Last Admin: 12/08/16 08:16 Dose: Not Given Ondansetron HCl (Zofran Odt) 4 mg PO Q6H PRN PRN Reason: nausea, able to take PO Oxycodone HCl (Oxycodone) 5 mg PO Q4H PRN PRN Reason: Pain (moderate 4-6) Last Admin: 12/07/16 22:03 Dose: 5 mg Patient's Own Medication 1 Each Excedrin Migraine 2 each PO Q6H PRN PRN Reason: Headache Last Admin: 12/07/16 23:38 Dose: 2 each Sodium Chloride (Saline Flush) 10 ml FLUSH ASDIRECTED PRN PRN Reason: Keep Vein Open Last Admin: 12/07/16 12:43 Dose: 10 ml Sodium Chloride (Saline Flush) 2.5 ml FLUSH ASDIRECTED PRN PRN Reason: Keep Vein Open Last Admin: 12/07/16 12:43 Dose: 2.5 ml Temazepam (Restoril) 15 mg PO BEDTIME PRN PRN Reason: Sleep Discontinued Medications Sodium Chloride (Normal Saline) 1,000 mls @ 999 mls/hr IV STAT ONE Stop: 12/07/16 13:20 Last Admin: 12/07/16 12:40 Dose: 999 mls/hr Sodium Chloride (Normal Saline) 1,000 mls @ 999 mls/hr IV STAT ONE Stop: 12/07/16 14:40 Last Admin: 12/07/16 14:07 Dose: 999 mls/hr Sodium Chloride (Normal Saline) 1,000 mls @ 999 mls/hr IV STAT ONE Stop: 12/07/16 15:02 Last Admin: 12/07/16 14:41 Dose: 999 mls/hr Ciprofloxacin/Dextrose 400 mg/ (Premix) 200 mls @ 200 mls/hr IV Q12H [facility] Last Admin: 12/07/16 15:48 Dose: Not Given Ceftriaxone Sodium/Dextrose 1 (gm/ Premix) 50 mls @ 100 mls/hr IV ONETIME ONE Stop: 12/07/16 14:35 Last Admin: 12/07/16 14:41 Dose: 100 mls/hr Vancomycin HCl 1 gm/ Sodium (Chloride) 250 mls @ 250 mls/hr IV ONETIME ONE Stop: 12/07/16 15:30 Last Admin: 12/07/16 15:07 Dose: 250 mls/hr Levofloxacin/Dextrose 500 mg/ (Premix) 100 mls @ 100 mls/hr IV ONETIME ONE Stop: 12/07/16 15:31 Last Admin: 12/07/16 15:48 Dose: Not Given Ceftriaxone Sodium/Dextrose 1 (gm/ Premix) 50 mls @ 100 mls/hr IV Q24H [facility] Iopamidol (Isovue Multipack-370 (76%)) 100 ml IVPUSH ONETIME STA Stop: 12/07/16 13:14 Last Admin: 12/07/16 13:13 Dose: 100 ml Ketorolac Tromethamine (Toradol) 30 mg IVPUSH ONETIME ONE Stop: 12/07/16 13:28 Last Admin: 12/07/16 13:38 Dose: 30 mg Ketorolac Tromethamine (Toradol) Confirm Administered Dose 30 mg .ROUTE .STK- MED ONE Stop: 12/07/16 13:40 Last Admin: 12/07/16 13:43 Dose: Not Given Morphine Sulfate (Morphine) 2 mg IV ONETIME ONE Stop: 12/07/16 12:21 Last Admin: 12/07/16 12:36 Dose: 2 mg Ondansetron HCl (Zofran) 4 mg IVPUSH ONETIME ONE Stop: 12/07/16 12:21 Last Admin: 12/07/16 12:36 Dose: 4 mg Patient's Own Medication 1 Each Excedrin 1 each PO Q6H PRN PRN Reason: Headache *Q Meaningful Use (DIS) - VTE *Q VTE Criteria *Q: - Stroke *Q Stroke Criteria *Q: - AMI *Q AMI Criteria *Q:
[2016-12-08] MEDS ORDERED: cefTRIAXone 1 GM in Premix Bag 1 BAG IV SCH ×2 (13:30→14:00)
--- NOTE | 2016-12-09 10:17 | CT ---
EXAM DATE: 12/07/16 PATIENT'S AGE: 41 Patient: JOE BOWERS Facility: [place], [place] Site . Site : 1975 Study: CT Abdomen/Pelvis W CONT [id number] 1:19:40 PM Ordering Physician: Doctor Bolivar Final Report: INDICATION: Body pain. Fever. History of kidney stones. Technique: Volumetric CT acquisition of the abdomen and pelvis following the administration of 100 mL Isovue-370 intravenous contrast. Multiplanar reconstruction. Findings: The lung bases are clear. The liver and spleen are normal in size. 1.1 cm cyst in the dome of the liver. No other focal abnormalities are identified. There is no dilatation of the biliary system. The gallbladder is present. The pancreas and adrenal glands are normal. Kidneys normal in size, shape, and position. No hydronephrosis. No renal masses or focal parenchymal abnormalities. Ureters normal in course and caliber. No urinary tract stones are identified. Abdominal aorta normal in caliber. No para-aortic or retrocrural lymphadenopathy. Normal bowel gas pattern. No inflammatory changes involving the bowel. Nondilated fluid -filled loops of small bowel in the lower abdomen and pelvis are nonspecific finding which can be present in the face of an enteritis. Sigmoid diverticulosis without diverticulitis. The urinary bladder has a smooth contour. The fat planes surrounding the bladder, prostate, and rectum are maintained. No free fluid in the abdomen and pelvis. No acute bony abnormality in the lumbar spine or pelvic ring . Impression : 1. Fluid-filled loops of nondilated small bowel are a nonspecific finding which can be present in the face of an enteritis. 2. Small simple cyst in the liver. 3. Sigmoid diverticulosis without diverticulitis. Please note that all CT scans at this facility use dose modulation, iterative reconstruction, and/or weight-based dosing when appropriate to reduce radiation dose to as low as reasonably achievable. Dictated by Therese Chaves MD @ Dec 07 2016 1:32PM (Electronic Signature) Report Signed by Proxy. [facility] INSANEViktor
--- NOTE | 2016-12-09 10:18 | CR ---
EXAM DATE: 12/07/16 PATIENT'S AGE: 41 Patient: JOE BOWERS Facility: [place], [place] Site . Site : 1975 Study: XRay Chest [id number] 1:25:18 PM Ordering Physician: Doctor Bolivar Final Report: INDICATION: Overall body aches. Technique: Two-view chest. Findings: Heart and mediastinum are normal in size and configuration. Pulmonary vessels are normal. Lungs are clear. No pleural fluid. No acute bony abnormality. Impression: Normal chest. Dictated by Therese Chaves MD @ Dec 07 2016 1:30PM (Electronic Signature) Report Signed by Proxy. VALDEMAR
== END 2016-12-08 10:10 | disposition left against medical advice (07) | DRG 463 ==
LOC: MW.ED 12:05 → MW.MS 15:17
PROVIDERS: ADMIT Internal Medicine; ATTEND Internal Medicine
DX: N10 Acute pyelonephritis (principal); D72.829 Elevated white blood cell count, unspecified; F15.10 Other stimulant abuse, uncomplicated; M54.9 Dorsalgia, unspecified; F17.200 Nicotine dependence, unspecified, uncomplicated; Z88.0 Allergy status to penicillin; Z87.442 Personal history of urinary calculi; Z53.21 Procedure and treatment not carried out due to patient leaving prior to being seen by health care provider
CPT/HCPCS: 36415; 71020; 71020-26; 74177; 74177-26; 80053; 80305; 81001; 83735; 84100; 85025; 87040; 87081; 87086; 87088; 87186; 87804; 87880; 96361; 96365; 96375; 99283; 99285-25; A9270-GY; J0696; J1885; J2270; J2405; J3370; J7040; J7050; Q9967

== ENCOUNTER 2021-07-25 13:35 | Emergency (ER) | payer SELFPAY ==
[2021-07-25] MEDS ORDERED: cefTRIAXone 1 GM Vial IM ONE (14:37)
[2021-07-25] MEDS ORDERED: Lidocaine 1% PF 2 ML SDV INJECT ONE (14:48)
[2021-07-25 14:53] LABS: ACETAMINOPHEN <2.0 ug/mL; BLOOD UREA NITROGEN,BUN 19 mg/dL (7.0-18.0); CARBON DIOXIDE,CO2 24.4 mmol/L (21.0-32.0); CHLORIDE,CL 104 mmol/L (98-107); GLUCOSE RANDOM 139 mg/dL (74-106); POTASSIUM,K 3.9 mmol/L (3.5-5.1); SODIUM,NA 137 mmol/L (136-148)
[2021-07-25] MEDS ORDERED: Acetaminophen 325 MG Tab PO ONE (15:06)
[2021-07-25] MEDS ORDERED: Ondansetron 4 MG Tab.DIS PO ONE (15:06)
[2021-07-25 16:50] VITALS: BP 132/73; PULSE 86
== END 2021-07-25 16:47 | disposition home or self-care (01) ==
LOC: MW.ED 13:35
DX: N30.01 Acute cystitis with hematuria (principal); F19.10 Other psychoactive substance abuse, uncomplicated; Z88.0 Allergy status to penicillin; Z20.822 Contact with and (suspected) exposure to COVID-19
CPT/HCPCS: 36415; 80053; 80143; 80179; 80305-QW; 80307; 81001; 83735; 84443; 85025; 87086; 96372; 99283; A9270-GY; J0696; U0002

== ENCOUNTER 2024-04-30 23:55 | Inpatient (IN) | payer MEDICAID ==
[2024-05-01] MEDS ORDERED: Sodium Chloride 0.9% 20 ML SDV IV PRN (00:31)
[2024-05-01] MEDS ORDERED: Sodium Chloride 0.9% 2.5 ML Syringe FLUSH PRN (00:31)
[2024-05-01] MEDS ORDERED: Sodium Chloride 0.9% 10 ML Syringe FLUSH PRN (00:31)
[2024-05-01] MEDS ORDERED: Naloxone 0.4 MG/ML SDV IVPUSH PRN (00:59)
[2024-05-01 01:06] LABS: BASOPHILS ABSOLUTE AUTO 0.02 K/uL (0.00-0.20); BASOPHILS PERCENT AUTO 0.1 % (0.0-1.0); EOSINOPHILS ABSOLUTE AUTO 0.07 K/uL (0.00-0.45); EOSINOPHILS PERCENT AUTO 0.4 % (0.0-6.0); HEMATOCRIT 30.2 % (42.0-52.0); HEMOGLOBIN 9.8 g/dL (14.0-18.0); IMMATURE GRAN ABSOLUTE AUTO 0.05 K/uL (0.00-0.05); IMMATURE GRAN PERCENT AUTO 0.3 % (0.0-0.4); LYMPHOCYTES PERCENT AUTO 3.9 % (24.0-44.0); MEAN CORPUSCULAR HEMOGLOBIN 27.8 pg (28.0-32.0); MEAN CORPUSCULAR HGB CONC 32.5 g/dL (32.0-36.0); MEAN CORPUSCULAR VOLUME 85.6 fL (83.0-99.0); MEAN PLATELET VOLUME 8.6 fL (9.4-12.4); MONOCYTES ABSOLUTE AUTO 0.07 K/uL (0.00-0.80); MONOCYTES PERCENT AUTO 0.4 % (0.0-8.0); NEUTROPHILS ABSOLUTE AUTO 16.87 K/uL (1.80-7.70); NEUTROPHILS PERCENT AUTO 94.9 % (41.0-71.0); PLATELET COUNT,PLT 581 K/uL (150-400); RED BLOOD CELL COUNT 3.53 M/uL (4.52-5.90); WHITE BLOOD CELL COUNT,WBC 17.78 K/uL (3.9-11.3)
[2024-05-01 01:14] LABS: PH,VENOUS 7.48 (7.31-7.41)
[2024-05-01] MEDS: Cefepime 1 GM in Sodium Chloride 0.9% 50 ML IV ONE (01:14)
[2024-05-01] MEDS: HYDROmorphone 1 MG/ML Syringe IVPUSH ONE ×2 (01:14→02:27)
[2024-05-01] MEDS: Sodium Chloride 0.9% 2,000 ML IV ONE (01:16)
[2024-05-01 01:21] LABS: INR 1.08 (0.86-1.11)
[2024-05-01 01:51] LABS: A/G RATIO 0.5 (0.9-1.6); ALBUMIN 2.4 g/dL (3.4-5.0); BILIRUBIN TOTAL 0.6 mg/dL (0.2-1.0); C-REACTIVE PROTEIN 24.05 mg/dL (<0.3); CALCIUM 9.5 mg/dL (8.5-10.1); CARBON DIOXIDE,CO2 26.5 mmol/L (21.0-32.0); CREATININE 0.9 mg/dL (0.8-1.3); EST CRCL DRUG DOSING (CG) 108.98 mL/min; MAGNESIUM 1.7 mg/dL (1.8-2.4); POTASSIUM,K 4.5 mmol/L (3.5-5.1); PROTEIN TOTAL,TP 7.5 g/dL (6.4-8.2)
[2024-05-01 02:21] LABS: APPEARANCE,URINE CLEAR; BILIRUBIN,URINE NEGATIVE (NEGATIVE); COLOR,URINE YELLOW; GLUCOSE,URINE NEGATIVE (NEGATIVE); KETONES,URINE NEGATIVE (NEGATIVE); LEUKOCYTE ESTERASE,URINE NEGATIVE (NEGATIVE); NITRITE,URINE NEGATIVE (NEGATIVE); OCCULT BLOOD,URINE NEGATIVE (NEGATIVE); PROTEIN,URINE NEGATIVE (NEGATIVE); UROBILINOGEN,URINE 0.2 EU/dL (<2.0)
[2024-05-01 02:31] LABS: AMPHETAMINES SCREEN, URINE NEGATIVE (CUTOFF=500); BARBITURATE SCREEN,URINE NEGATIVE (CUTOFF=200); BENZODIAZEPINES SCREEN,URINE NEGATIVE (CUTOFF=150); BUPRENORPHINE SCREEN,URINE NEGATIVE (CUTOFF=10); METHADONE SCREEN, URINE NEGATIVE (CUTOFF=200); METHAMPHETAMINES SCREEN, URINE NEGATIVE (CUTOFF=500); OXYCODONE SCREEN,URINE PRESUMPTIVE POSITIVE (CUT0FF=100); PCP SCREEN,URINE NEGATIVE (CUTOFF=25); THC SCREEN,URINE 20 NG/ML NEGATIVE (CUTOFF=50)
[2024-05-01] MEDS: HYDROmorphone 1 MG/ML Syringe IVPUSH PRN (04:08)
[2024-05-01] MEDS: Baclofen 10 MG Tab PO SCH (06:05)
[2024-05-01 06:49] LABS: BASOPHILS ABSOLUTE AUTO 0.01 K/uL (0.00-0.20); BASOPHILS PERCENT AUTO 0.1 % (0.0-1.0); EOSINOPHILS ABSOLUTE AUTO 0.01 K/uL (0.00-0.45); EOSINOPHILS PERCENT AUTO 0.1 % (0.0-6.0); HEMATOCRIT 28.9 % (42.0-52.0); HEMOGLOBIN 9.3 g/dL (14.0-18.0); IMMATURE GRAN ABSOLUTE AUTO 0.06 K/uL (0.00-0.05); IMMATURE GRAN PERCENT AUTO 0.4 % (0.0-0.4); LYMPHOCYTES PERCENT AUTO 6.3 % (24.0-44.0); MEAN CORPUSCULAR HEMOGLOBIN 27.7 pg (28.0-32.0); MEAN CORPUSCULAR HGB CONC 32.2 g/dL (32.0-36.0); MEAN PLATELET VOLUME 9.5 fL (9.4-12.4); MONOCYTES ABSOLUTE AUTO 0.05 K/uL (0.00-0.80); MONOCYTES PERCENT AUTO 0.3 % (0.0-8.0); NEUTROPHILS ABSOLUTE AUTO 13.33 K/uL (1.80-7.70); NEUTROPHILS PERCENT AUTO 92.8 % (41.0-71.0); PLATELET COUNT,PLT 494 K/uL (150-400); RED BLOOD CELL COUNT 3.36 M/uL (4.52-5.90); WHITE BLOOD CELL COUNT,WBC 14.36 K/uL (3.9-11.3)
[2024-05-01 07:17] LABS: CALCIUM 9.1 mg/dL (8.5-10.1); CARBON DIOXIDE,CO2 25.7 mmol/L (21.0-32.0); CREATININE 0.9 mg/dL (0.8-1.3); EST CRCL DRUG DOSING (CG) 108.98 mL/min; POTASSIUM,K 4.1 mmol/L (3.5-5.1)
[2024-05-01] MEDS: Cefepime 2 GM in Sodium Chloride 0.9% 50 ML IV SCH (08:32)
[2024-05-01] MEDS ORDERED: Ondansetron 4 MG/2 ML SDV IVPUSH PRN (09:17)
[2024-05-01] MEDS: HYDROmorphone 2 MG Tab PO PRN (13:49)
[2024-05-01] MEDS: HYDROmorphone 2 MG/ML Syringe IVPUSH PRN ×2 (16:10→23:22)
[2024-05-01] MEDS: Acetaminophen/HYDROcodone 325-10 MG Tab PO SCH (16:12)
[2024-05-01] MEDS ORDERED: HYDROmorphone 2 MG/ML Syringe IVPUSH PRN (19:28)
[2024-05-01] MEDS: oxyCODONE ER 10 MG TAB.ER PO SCH (21:32)
[2024-05-01] MEDS: HYDROmorphone 2 MG Tab PO SCH (22:06)
[2024-05-01] MEDS: Iopamidol 755 MG/ML 500 ML Multipack Bottle IVPUSH ONE (23:40)
[2024-05-02] MEDS: Sodium Chloride 0.9% 1,000 ML IV SCH
[2024-05-02] MEDS: Acetaminophen 325 MG Tab PO PRN (05:28)
[2024-05-02] MEDS: Ondansetron 4 MG Tab.DIS PO PRN (05:40)
[2024-05-02 05:44] LABS: CORONAVIRUS COVID-19 NAA NEGATIVE (NEGATIVE); INFLUENZA A NAA NEGATIVE (NEGATIVE); INFLUENZA B NAA NEGATIVE (NEGATIVE); RESPIRATORY SYNCYTIAL VIR NAA NEGATIVE (NEGATIVE)
[2024-05-02 07:04] LABS: HEMOGLOBIN 8.4 g/dL (14.0-18.0); MEAN CORPUSCULAR HEMOGLOBIN 27.5 pg (28.0-32.0); MEAN CORPUSCULAR HGB CONC 32.3 g/dL (32.0-36.0); MEAN PLATELET VOLUME 8.4 fL (9.4-12.4); PLATELET COUNT,PLT 463 K/uL (150-400); RED BLOOD CELL COUNT 3.06 M/uL (4.52-5.90); WHITE BLOOD CELL COUNT,WBC 10.47 K/uL (3.9-11.3)
[2024-05-02 07:29] LABS: LYMPHOCYTES ABSOLUTE MAN 1.57 K/uL (1.00-4.80); LYMPHOCYTES PERCENT MAN 15 % (24-44); SEG NEUTROPHILS ABSOLUTE MAN 7.75 K/uL (1.80-7.70); SEG NEUTROPHILS PERCENT MAN 74 % (41-71)
[2024-05-02 07:30] LABS: EOSINOPHILS ABSOLUTE MAN 1.05 K/uL (0.00-0.45); EOSINOPHILS PERCENT MAN 10 % (0-6); MONOCYTES PERCENT MAN 1 % (0-8)
[2024-05-02 07:41] LABS: A/G RATIO 0.4 (0.9-1.6); ALBUMIN 1.9 g/dL (3.4-5.0); BILIRUBIN TOTAL 0.4 mg/dL (0.2-1.0); CALCIUM 9.1 mg/dL (8.5-10.1); CARBON DIOXIDE,CO2 24.7 mmol/L (21.0-32.0); CREATININE 0.9 mg/dL (0.8-1.3); EST CRCL DRUG DOSING (CG) 108.98 mL/min; MAGNESIUM 1.6 mg/dL (1.8-2.4); POTASSIUM,K 3.8 mmol/L (3.5-5.1); PROTEIN TOTAL,TP 6.7 g/dL (6.4-8.2)
[2024-05-02] MEDS ORDERED: Naloxone 0.4 MG/ML SDV IVPUSH PRN (10:56)
[2024-05-02] MEDS ORDERED: diphenhydrAMINE 50 MG/ML SDV IVPUSH PRN (10:56)
[2024-05-02] MEDS ORDERED: diphenhydrAMINE 25 MG Cap PO PRN (10:56)
[2024-05-02] MEDS ORDERED: Sennosides/Docusate Sodium 50-8.6 MG Tab PO PRN (11:15)
[2024-05-02] MEDS: HYDROmorphone/Normal Saline 6 MG/30 ML PCA Vial IV PRN ×2 (12:58→13:44)
[2024-05-02] MEDS: Lactulose Soln 10 GM/15 ML 15 ML UD Cup PO SCH (13:05)
[2024-05-02] MEDS: Enoxaparin 40 MG/0.4 ML Syringe SUBCUT SCH (13:06)
[2024-05-02] MEDS: VANCOmycin 1.75 GM/350 ML 1.75 GM in Premix Bag 1 BAG IV ONE (13:40)
[2024-05-02] MEDS: Magnesium Sulf/Wat 2 GM/50 mL 2 GM in Premix Bag 1 BAG IV ONE (20:54)
[2024-05-02] MEDS: Bisacodyl 5 MG Tab PO SCH (21:01)
[2024-05-03] MEDS: VANCOmycin 1.5 GM in Sodium Chloride 0.9% 250 ML IV SCH ×2 (03:06→03:48)
[2024-05-03] MEDS: Docusate Sodium 100 MG Cap PO SCH (09:43)
[2024-05-04 06:57] LABS: HEMOGLOBIN 7.2 g/dL (14.0-18.0); MEAN CORPUSCULAR HEMOGLOBIN 26.8 pg (28.0-32.0); MEAN CORPUSCULAR HGB CONC 31.3 g/dL (32.0-36.0); MEAN CORPUSCULAR VOLUME 85.5 fL (83.0-99.0); MEAN PLATELET VOLUME 8.5 fL (9.4-12.4); PLATELET COUNT,PLT 276 K/uL (150-400); RED BLOOD CELL COUNT 2.69 M/uL (4.52-5.90); WHITE BLOOD CELL COUNT,WBC 3.57 K/uL (3.9-11.3)
[2024-05-04 07:27] LABS: EOSINOPHILS ABSOLUTE MAN 0.71 K/uL (0.00-0.45); EOSINOPHILS PERCENT MAN 20 % (0-6); LYMPHOCYTES ABSOLUTE MAN 1.21 K/uL (1.00-4.80); LYMPHOCYTES PERCENT MAN 34 % (24-44); MONOCYTES ABSOLUTE MAN 0.29 K/uL (0.00-0.80); MONOCYTES PERCENT MAN 8 % (0-8); SEG NEUTROPHILS ABSOLUTE MAN 1.36 K/uL (1.80-7.70); SEG NEUTROPHILS PERCENT MAN 38 % (41-71)
[2024-05-04 07:33] LABS: A/G RATIO 0.4 (0.9-1.6); ALBUMIN 1.6 g/dL (3.4-5.0); BILIRUBIN TOTAL 0.3 mg/dL (0.2-1.0); CALCIUM 8.4 mg/dL (8.5-10.1); CARBON DIOXIDE,CO2 24.5 mmol/L (21.0-32.0); CREATININE 0.7 mg/dL (0.8-1.3); EST CRCL DRUG DOSING (CG) 140.11 mL/min; MAGNESIUM 1.7 mg/dL (1.8-2.4); POTASSIUM,K 3.3 mmol/L (3.5-5.1); PROTEIN TOTAL,TP 5.9 g/dL (6.4-8.2)
[2024-05-04] MEDS: NS + KCl 20mEq/L 1,000 ML IV SCH (08:58)
[2024-05-04] MEDS: Ketorolac 30 MG/ML SDV IVPUSH SCH (10:48)
[2024-05-04] MEDS ORDERED: Methadone 10 MG Tab PO SCH (14:00)
[2024-05-04] MEDS: Methadone 10 MG Tab PO SCH (14:36)
[2024-05-04 14:51] LABS: HEMATOCRIT 24.2 % (42.0-52.0); HEMOGLOBIN 7.9 g/dL (14.0-18.0); MEAN CORPUSCULAR HEMOGLOBIN 27.9 pg (28.0-32.0); MEAN CORPUSCULAR HGB CONC 32.6 g/dL (32.0-36.0); MEAN CORPUSCULAR VOLUME 85.5 fL (83.0-99.0); MEAN PLATELET VOLUME 8.6 fL (9.4-12.4); PLATELET COUNT,PLT 280 K/uL (150-400); RED BLOOD CELL COUNT 2.83 M/uL (4.52-5.90); WHITE BLOOD CELL COUNT,WBC 3.84 K/uL (3.9-11.3)
[2024-05-04 15:34] LABS: EOSINOPHILS ABSOLUTE MAN 0.65 K/uL (0.00-0.45); EOSINOPHILS PERCENT MAN 17 % (0-6); LYMPHOCYTES ABSOLUTE MAN 0.88 K/uL (1.00-4.80); LYMPHOCYTES PERCENT MAN 23 % (24-44); MONOCYTES ABSOLUTE MAN 0.19 K/uL (0.00-0.80); MONOCYTES PERCENT MAN 5 % (0-8); SEG NEUTROPHILS ABSOLUTE MAN 2.11 K/uL (1.80-7.70); SEG NEUTROPHILS PERCENT MAN 55 % (41-71)
[2024-05-04 16:13] LABS: A/G RATIO 0.4 (0.9-1.6); ALBUMIN 1.8 g/dL (3.4-5.0); BILIRUBIN TOTAL 0.3 mg/dL (0.2-1.0); CALCIUM 8.7 mg/dL (8.5-10.1); CARBON DIOXIDE,CO2 26.9 mmol/L (21.0-32.0); CREATININE 0.7 mg/dL (0.8-1.3); EST CRCL DRUG DOSING (CG) 140.11 mL/min; POTASSIUM,K 3.3 mmol/L (3.5-5.1); PROTEIN TOTAL,TP 6.3 g/dL (6.4-8.2)
[2024-05-05 06:40] LABS: HEMATOCRIT 20.5 % (42.0-52.0); HEMOGLOBIN 6.7 g/dL (14.0-18.0); MEAN CORPUSCULAR HEMOGLOBIN 27.9 pg (28.0-32.0); MEAN CORPUSCULAR HGB CONC 32.7 g/dL (32.0-36.0); MEAN CORPUSCULAR VOLUME 85.4 fL (83.0-99.0); MEAN PLATELET VOLUME 8.5 fL (9.4-12.4); PLATELET COUNT,PLT 245 K/uL (150-400); WHITE BLOOD CELL COUNT,WBC 3.83 K/uL (3.9-11.3)
[2024-05-05 07:10] LABS: EOSINOPHILS ABSOLUTE MAN 1.07 K/uL (0.00-0.45); EOSINOPHILS PERCENT MAN 28 % (0-6); LYMPHOCYTES PERCENT MAN 26 % (24-44); MONOCYTES ABSOLUTE MAN 0.31 K/uL (0.00-0.80); MONOCYTES PERCENT MAN 8 % (0-8); SEG NEUTROPHILS ABSOLUTE MAN 1.46 K/uL (1.80-7.70); SEG NEUTROPHILS PERCENT MAN 38 % (41-71)
[2024-05-05 07:13] LABS: A/G RATIO 0.4 (0.9-1.6); ALBUMIN 1.5 g/dL (3.4-5.0); BILIRUBIN TOTAL 0.3 mg/dL (0.2-1.0); CALCIUM 8.6 mg/dL (8.5-10.1); CREATININE 0.6 mg/dL (0.8-1.3); EST CRCL DRUG DOSING (CG) 163.46 mL/min; MAGNESIUM 1.3 mg/dL (1.8-2.4); PHOSPHORUS 2.4 mg/dL (2.6-4.7); POTASSIUM,K 3.2 mmol/L (3.5-5.1); PROTEIN TOTAL,TP 5.6 g/dL (6.4-8.2)
[2024-05-05] MEDS: Pantoprazole 40 MG Tab.CR PO SCH (12:08)
[2024-05-05] MEDS: Methadone 10 MG Tab PO SCH (14:18)
[2024-05-05 14:22] LABS: HEMATOCRIT 21.7 % (42.0-52.0); MEAN CORPUSCULAR HEMOGLOBIN 27.6 pg (28.0-32.0); MEAN CORPUSCULAR HGB CONC 32.3 g/dL (32.0-36.0); MEAN CORPUSCULAR VOLUME 85.4 fL (83.0-99.0); MEAN PLATELET VOLUME 9.4 fL (9.4-12.4); PLATELET COUNT,PLT 305 K/uL (150-400); RED BLOOD CELL COUNT 2.54 M/uL (4.52-5.90)
[2024-05-05 15:08] LABS: EOSINOPHILS ABSOLUTE MAN 1.04 K/uL (0.00-0.45); EOSINOPHILS PERCENT MAN 23 % (0-6); LYMPHOCYTES ABSOLUTE MAN 1.26 K/uL (1.00-4.80); LYMPHOCYTES PERCENT MAN 28 % (24-44); MONOCYTES ABSOLUTE MAN 0.54 K/uL (0.00-0.80); MONOCYTES PERCENT MAN 12 % (0-8); SEG NEUTROPHILS ABSOLUTE MAN 1.67 K/uL (1.80-7.70); SEG NEUTROPHILS PERCENT MAN 37 % (41-71)
[2024-05-05] MEDS: Potassium Chloride 20 MEQ Tab.ER PO ONE (16:57)
[2024-05-05] MEDS: Phosphorus #1 250 MG Tab PO SCH (16:58)
[2024-05-05] MEDS: VANCOmycin 1.25 GM in Sodium Chloride 0.9% 250 ML IV SCH (18:16)
[2024-05-05 22:18] LABS: HEMATOCRIT 23.5 % (42.0-52.0); HEMOGLOBIN 7.6 g/dL (14.0-18.0)
[2024-05-05] MEDS: Magnesium Sulf/Wat 4 GM/100 mL 4 GM in Premix Bag 1 BAG IV ONE ×2 (22:21→22:26)
[2024-05-06 05:45] LABS: HEMATOCRIT 23.6 % (42.0-52.0); HEMOGLOBIN 7.6 g/dL (14.0-18.0); MEAN CORPUSCULAR HEMOGLOBIN 27.1 pg (28.0-32.0); MEAN CORPUSCULAR HGB CONC 32.2 g/dL (32.0-36.0); MEAN CORPUSCULAR VOLUME 84.3 fL (83.0-99.0); MEAN PLATELET VOLUME 8.6 fL (9.4-12.4); PLATELET COUNT,PLT 282 K/uL (150-400); WHITE BLOOD CELL COUNT,WBC 4.95 K/uL (3.9-11.3)
[2024-05-06 06:15] LABS: A/G RATIO 0.4 (0.9-1.6); ALBUMIN 1.7 g/dL (3.4-5.0); BILIRUBIN TOTAL 0.3 mg/dL (0.2-1.0); CALCIUM 8.2 mg/dL (8.5-10.1); CARBON DIOXIDE,CO2 28.2 mmol/L (21.0-32.0); CREATININE 0.7 mg/dL (0.8-1.3); EST CRCL DRUG DOSING (CG) 140.11 mL/min; MAGNESIUM 1.6 mg/dL (1.8-2.4); POTASSIUM,K 3.1 mmol/L (3.5-5.1); PROTEIN TOTAL,TP 6.1 g/dL (6.4-8.2)
[2024-05-06 06:55] LABS: BASOPHILS ABSOLUTE MAN 0.05 K/uL (0.00-0.20); BASOPHILS PERCENT MAN 1 % (0-1); EOSINOPHILS ABSOLUTE MAN 1.49 K/uL (0.00-0.45); EOSINOPHILS PERCENT MAN 30 % (0-6); LYMPHOCYTES ABSOLUTE MAN 1.53 K/uL (1.00-4.80); LYMPHOCYTES PERCENT MAN 31 % (24-44); MONOCYTES PERCENT MAN 8 % (0-8); SEG NEUTROPHILS ABSOLUTE MAN 1.49 K/uL (1.80-7.70); SEG NEUTROPHILS PERCENT MAN 30 % (41-71)
[2024-05-06] MEDS: VANCOMYCIN 1.25 GM ONE (07:25)
[2024-05-06] MEDS: Magnesium Sulf/Wat 2 GM/50 mL 2 GM in Premix Bag 1 BAG IV ONE (09:45)
[2024-05-06] MEDS: Potassium Chloride 20 MEQ Tab.ER PO ONE (12:32)
[2024-05-06] MEDS ORDERED: HYDROmorphone 1 MG/ML Syringe IVPUSH PRN (14:17)
[2024-05-06] MEDS: Polyethylene Glycol 3350 Powder 17 GM Packet PO SCH (16:48)
[2024-05-06] MEDS: HYDROmorphone 2 MG Tab PO PRN (18:41)
[2024-05-06] MEDS: Sennosides 8.6 MG Tab PO SCH (21:31)
[2024-05-07 17:36] VITALS: BP 121/68; PULSE 88
== END 2024-05-07 17:45 | disposition home health service (06) | DRG 864 ==
LOC: MW.ED 23:55 → MW.MS 05-01 02:19
PROVIDERS: ADMIT Internal Medicine; ATTEND Internal Medicine
DX: R50.2 Drug induced fever (principal); C34.90 Malignant neoplasm of unspecified part of unspecified bronchus or lung; D84.821 Immunodeficiency due to drugs; C79.51 Secondary malignant neoplasm of bone; C78.7 Secondary malignant neoplasm of liver and intrahepatic bile duct; T45.1X5A Adverse effect of antineoplastic and immunosuppressive drugs, initial encounter; E86.0 Dehydration; M54.50 Low back pain, unspecified; F19.10 Other psychoactive substance abuse, uncomplicated; F15.10 Other stimulant abuse, uncomplicated; F41.9 Anxiety disorder, unspecified; H54.7 Unspecified visual loss; Z72.0 Tobacco use; Z88.0 Allergy status to penicillin; Z90.49 Acquired absence of other specified parts of digestive tract; Z79.69 Long term (current) use of other immunomodulators and immunosuppressants
CPT/HCPCS: 0241U; 36415; 36430; 71045; 71045-26; 71270; 71270-26; 74178; 74178-26; 80048; 80053; 80202; 80305; 81003; 82803; 83605; 83735; 84100; 84145; 85014; 85018; 85025; 85610; 86140; 86850; 86900; 86901; 86920; 87040; 87428-QW; 96361; 96365; 96375; 97163-GP; 99284; 99285-25; A9270-GY; J0692; J1171; J1642; J1650; J1885; J3371; J3372; J3475; J3480; J3490; J7030; J7050; P9016; Q9967

== ENCOUNTER 2024-06-04 14:12 | Emergency (ER) | payer SELFPAY ==
[2024-06-04] MEDS ORDERED: Sodium Chloride 0.9% 10 ML Syringe FLUSH PRN (14:50)
[2024-06-04] MEDS ORDERED: Sodium Chloride 0.9% 2.5 ML Syringe FLUSH PRN (14:50)
[2024-06-04 15:10] LABS: BASOPHILS ABSOLUTE AUTO 0.02 K/uL (0.00-0.20); BASOPHILS PERCENT AUTO 0.3 % (0.0-1.0); EOSINOPHILS ABSOLUTE AUTO 0.84 K/uL (0.00-0.45); EOSINOPHILS PERCENT AUTO 13.1 % (0.0-6.0); HEMATOCRIT 24.8 % (42.0-52.0); HEMOGLOBIN 8.1 g/dL (14.0-18.0); IMMATURE GRAN ABSOLUTE AUTO 0.04 K/uL (0.00-0.05); IMMATURE GRAN PERCENT AUTO 0.6 % (0.0-0.4); LYMPHOCYTES ABSOLUTE AUTO 1.29 K/uL (1.00-4.80); LYMPHOCYTES PERCENT AUTO 20.1 % (24.0-44.0); MEAN CORPUSCULAR HEMOGLOBIN 27.9 pg (28.0-32.0); MEAN CORPUSCULAR HGB CONC 32.7 g/dL (32.0-36.0); MEAN CORPUSCULAR VOLUME 85.5 fL (83.0-99.0); MEAN PLATELET VOLUME 8.8 fL (9.4-12.4); MONOCYTES ABSOLUTE AUTO 0.97 K/uL (0.00-0.80); MONOCYTES PERCENT AUTO 15.1 % (0.0-8.0); NEUTROPHILS ABSOLUTE AUTO 3.27 K/uL (1.80-7.70); NEUTROPHILS PERCENT AUTO 50.8 % (41.0-71.0); PLATELET COUNT,PLT 558 K/uL (150-400); WHITE BLOOD CELL COUNT,WBC 6.43 K/uL (3.9-11.3)
[2024-06-04] MEDS: Sodium Chloride 0.9% 1,000 ML IV STA ×3 (15:10→16:27)
[2024-06-04] MEDS: Acetaminophen 500 MG Tab PO STA (15:31)
[2024-06-04] MEDS: Ondansetron 4 MG/2 ML SDV IVPUSH STA (15:31)
[2024-06-04] MEDS: Cefepime 2 GM in Sodium Chloride 0.9% 50 ML IV STA (15:32)
[2024-06-04] MEDS: HYDROmorphone 1 MG/ML Syringe IVPUSH STA ×2 (15:32→16:31)
[2024-06-04 15:40] LABS: INR 1.31 (0.86-1.11)
[2024-06-04 15:41] LABS: A/G RATIO 0.4 (0.9-1.6); ALBUMIN 2.1 g/dL (3.4-5.0); BILIRUBIN TOTAL 0.4 mg/dL (0.2-1.0); CALCIUM 8.4 mg/dL (8.5-10.1); CARBON DIOXIDE,CO2 23.8 mmol/L (21.0-32.0); CREATININE 1.1 mg/dL (0.8-1.3); EST CRCL DRUG DOSING (CG) 88.6 mL/min; POTASSIUM,K 2.9 mmol/L (3.5-5.1); PROTEIN TOTAL,TP 7.7 g/dL (6.4-8.2)
[2024-06-04 15:44] LABS: LACTIC ACID 4.3 mmol/L (0.4-2.0)
[2024-06-04] MEDS ORDERED: Naloxone 0.4 MG/ML SDV IVPUSH PRN (16:20)
[2024-06-04] MEDS: Potassium Chloride 20 MEQ Tab.ER PO STA (16:27)
[2024-06-04] MEDS: HYDROmorphone 2 MG/ML Syringe IVPUSH STA (16:29)
[2024-06-04 17:09] VITALS: BP 133/89; PULSE 105
[2024-06-04] MEDS: Iopamidol 755 MG/ML 500 ML Multipack Bottle IVPUSH STA (17:10)
[2024-06-04 17:40] LABS: AMPHETAMINES SCREEN, URINE NEGATIVE (CUTOFF=500); BARBITURATE SCREEN,URINE NEGATIVE (CUTOFF=200); BENZODIAZEPINES SCREEN,URINE NEGATIVE (CUTOFF=150); BUPRENORPHINE SCREEN,URINE NEGATIVE (CUTOFF=10); METHADONE SCREEN, URINE NEGATIVE (CUTOFF=200); METHAMPHETAMINES SCREEN, URINE NEGATIVE (CUTOFF=500); OXYCODONE SCREEN,URINE NEGATIVE (CUT0FF=100); PCP SCREEN,URINE NEGATIVE (CUTOFF=25); THC SCREEN,URINE 20 NG/ML NEGATIVE (CUTOFF=50)
== END 2024-06-04 17:58 | disposition left against medical advice (07) ==
LOC: MW.ED 14:12
DX: K04.7 Periapical abscess without sinus (principal); K02.9 Dental caries, unspecified; E87.6 Hypokalemia; E87.20 Acidosis, unspecified; D75.839 Thrombocytosis, unspecified; M84.48XA Pathological fracture, other site, initial encounter for fracture; C34.90 Malignant neoplasm of unspecified part of unspecified bronchus or lung; Z90.49 Acquired absence of other specified parts of digestive tract; Z88.0 Allergy status to penicillin; Z88.5 Allergy status to narcotic agent; Z91.018 Allergy to other foods; Z79.01 Long term (current) use of anticoagulants; Z79.82 Long term (current) use of aspirin; Z79.899 Other long term (current) drug therapy; Z75.3 Unavailability and inaccessibility of health-care facilities
CPT/HCPCS: 36415; 70487; 71046; 80053; 80305; 83605; 83690; 84484; 85025; 85610; 86850; 86900; 86901; 87040; 93005; 96361; 96365; 96375; 96376; 99284; A9270; J0692; J1171; J1642; J2405; J7030; Q9967